=== PATIENT | female | born 1940 | race Caucasian/White ===

== ENCOUNTER → 2022-07-11 | Outpatient (CLI) | payer OTHER | END | disposition home or self-care (01) | LOC: RAH 11:27 | PROVIDERS: ATTEND Internal Medicine | DX: I08.0 Rheumatic disorders of both mitral and aortic valves (principal) | CPT/HCPCS: 93306 ==

== ENCOUNTER → 2023-10-20 | Outpatient (CLI) | payer OTHER | END | disposition home or self-care (01) | LOC: RAH 13:15 | PROVIDERS: ATTEND Internal Medicine | DX: M85.88 Other specified disorders of bone density and structure, other site (principal); Z78.0 Asymptomatic menopausal state | CPT/HCPCS: 77080 ==